=== PATIENT | male | born 1985 | race Caucasian/White ===

== ENCOUNTER 2019-07-02 17:17 | Emergency (ER) | payer OTHER ==
[~2019-07-02] VITALS: Ht 172.7 cm; Wt 94.5 kg
[~2019-07-02 17:17] MED LIST: CEPH-443 PO; CIPR-173; DIPH1TAB25 PO; ERYT1OIN6 RIGHT EYE; HYDR-3720 PO; IBUP-1542 PO; OMEP20CA9 PO; ONDA4TAB35 PO; RANI-535 PO; TRAM50TA2
[2019-07-02 17:20] VITALS: BP 123/77; PULSE 63; RESP 20; Ht 172.7 cm; Wt 94.5 kg
[2019-07-02] MEDS ORDERED: LIDOCAINE 1% (MDV) 20 ML INJ SC ONE (18:00)
[2019-07-02] MEDS ORDERED: CEFTRIAXONE 250 MG INJ IM ONE (18:00)
== END 2019-07-02 17:45 | disposition home or self-care (01) ==
LOC: FTE 17:17
DX: H00.011 Hordeolum externum right upper eyelid (principal); L03.213 Periorbital cellulitis
CPT/HCPCS: 96372; J0696; Z7502; Z7610